=== PATIENT | female | born 1965 ===

== ENCOUNTER 2020-05-18 23:14 | Emergency (ER) | payer OTHER ==
[~2020-05-18] VITALS: Ht 165.1 cm; Wt 65.3 kg
[~2020-05-18 23:14] MED LIST: MEDROL PACK PO; ZYRTEC10 MG PO
[2020-05-19] MEDS ORDERED: ALLEGRA ALLERG180 MG PO (01:00)
[2020-05-19] MEDS ORDERED: MEDROLPACK PO (01:00)
== END 2020-05-19 01:13 | disposition home or self-care (01) ==
LOC: ER 23:14
DX: T78.49XA Other allergy, initial encounter (principal); R21 Rash and other nonspecific skin eruption